=== PATIENT | female | born 2000 | race American Indian/Alaskan Native ===

== ENCOUNTER 2019-03-17 13:31 | Emergency (ER) | payer OTHER ==
[2019-03-17 13:44] VITALS: BP 139/84
--- NOTE | 2019-03-17 13:47 | Event Note ---
ED Screening Note Date of service: 03/17/19 Time: 13:41 ED Screening Note: 18 y/o female comes in for vaginal bleeding. Having pelvic cramping. Has only gone through 1 tampon. LMP 03/14/19. Has only went through 2 tampons yesterday. No chest no dizziness. This initial assessment/diagnostic orders/clinical plan/treatment(s) is/are subject to change based on patients health status, clinical progression and re- assessment by fellow clinical providers in the ED. Further treatment and workup at subsequent clinical providers discretion. Patient/guardian urged not to elope from the ED as their condition may be serious if not clinically assessed and managed. Initial orders include:
--- NOTE | 2019-03-17 15:09 | Emergency Department Report ---
ED Female HPI - General Chief complaint: Vaginal Bleeding Stated complaint: HEAVY BLEEDING/PELVIC PAIN Time Seen by Provider: 03/17/19 13:41 Source: patient Mode of arrival: Ambulatory Limitations: No Limitations - History of Present Illness Initial comments: Miss Farris is a 18-year-old female with history of severe obesity who presents with pelvic pain and vaginal bleeding. This is the normal time for her menstrual cycle. However the bleeding is heavier than normal. The cramps were more pronounced. She had unprotected sex on month ago. She is concerned for potential sexually transmitted disease. She did not have any vaginal discharge prior to the beginning of her menses. Denies fever. Denies vomiting. She also admits to depression. Over the past year she is gained over 100 pounds. 2 years ago she weighed 220 pounds. She currently weighs 380 pounds. Her current height is 5 feet 9 inches. She has multiple social stressors: She moved to [place] from [place] with out "margarita to my name". She has to start all over with minimal belongings. She is now living with her mother. She denies suicidal or homicidal ideation. She has not sought out support for her depression. Complaint: vaginal bleeding, pelvic pain -: Gradual Severity: moderate Severity scale (0 -10): 7 Quality: cramping Consistency: constant Improves with: none Worsens with: urination Are you Now?: No - Related Data Previous Rx's Medication Instructions Recorded Last Taken Type Ibuprofen [Motrin 800 MG tab] 800 mg PO Q8HR PRN #15 tablet 03/17/19 Unknown Rx Allergies Allergy/AdvReac Type Severity Reaction Status Date / Time No Known Allergies Allergy Unverified 03/17/19 13:34 ED Review of Systems ROS: Stated complaint: HEAVY BLEEDING/PELVIC PAIN Other details as noted in HPI Comment: All other systems reviewed and negative Constitutional: denies: fever, malaise Gastrointestinal: denies: nausea, vomiting Genitourinary: abnormal menses. denies: urgency, dysuria, frequency, hematuria, discharge, dyspareunia ED Past Medical Hx - Past Medical History Previous Medical History?: No - Surgical History Past Surgical History?: No - Social History Smoking Status: Never Smoker Substance Use Type: Alcohol - Medications Home Medications: Home Medications Medication Instructions Recorded Confirmed Last Taken Type Ibuprofen [Motrin 800 MG tab] 800 mg PO Q8HR PRN #15 tablet 03/17/19 Unknown Rx ED Physical Exam - General Limitations: No Limitations General appearance: alert, in no apparent distress - Head Head exam: Present: atraumatic, normocephalic - Eye Eye exam: Present: normal appearance - ENT ENT exam: Present: mucous membranes moist - Neck Neck exam: Present: normal inspection, full ROM - Respiratory Respiratory exam: Present: normal lung sounds bilaterally. Absent: respiratory distress, wheezes, rales, rhonchi - Cardiovascular Cardiovascular Exam: Present: regular rate, normal rhythm, normal heart sounds. Absent: systolic murmur, diastolic murmur, rubs, gallop - GI/Abdominal GI/Abdominal exam: Present: soft, normal bowel sounds. Absent: distended, tenderness, guarding, rebound - Extremities Exam Extremities exam: Present: normal inspection - Back Exam Back exam: Present: normal inspection - Neurological Exam Neurological exam: Present: alert, oriented X3 - Psychiatric Psychiatric exam: Present: normal affect, depressed - Skin Skin exam: Present: warm, dry, intact, normal color. Absent: rash ED Course Vital Signs 03/17/19 13:41 Temperature 98.3 F Pulse Rate 75 Respiratory 18 Rate Blood Pressure 139/84 O2 Sat by Pulse 98 Oximetry ED Medical Decision Making - Medical Decision Making Miss Farris presents with signs and symptoms of dysmenorrhea. Differential diagnosis includes uterine fibroids, PCOS, endometriosis. I referred her to outside clinic for further testing. Rx: ibuprofen Acute impression: No suicidal or homicidal ideation. I referred her to [facility] Critical care attestation.: If time is entered above; I have spent that time in minutes in the direct care of this critically ill patient, excluding procedure time. ED Disposition Clinical Impression: Dysmenorrhea, Acute depression Disposition: DC-01 TO HOME OR SELFCARE Is pt being admited?: No Does the pt Need Aspirin: No Condition: Stable Instructions: Dysmenorrhea (ED), Depression (ED) Additional Instructions: Please discuss the possibility of PCOS with your new physician. Prescriptions: Ibuprofen [Motrin 800 MG tab] 800 mg PO Q8HR PRN #15 tablet PRN Reason: Pain , Severe (7-10) Referrals: [facility] [Outside] - 3-5 Days [facility] [Outside] - 3-5 Days Forms: Work/School Release Form(ED)
[2019-03-17] MEDS ORDERED: IBUPROFEN 800 MG TAB PO ONE (15:11)
== END 2019-03-17 15:36 | disposition home or self-care (01) ==
LOC: ED 13:31
DX: N94.6 Dysmenorrhea, unspecified (principal); F32.9 Major depressive disorder, single episode, unspecified

== ENCOUNTER 2019-03-17 18:55 | Emergency (ER) | payer OTHER ==
[2019-03-17 20:23] VITALS: BP 162/92
== END 2019-03-17 22:13 | disposition left against medical advice (07) ==
LOC: ED 18:55
DX: N93.9 Abnormal uterine and vaginal bleeding, unspecified (principal); Z53.21 Procedure and treatment not carried out due to patient leaving prior to being seen by health care provider